=== PATIENT | male | born 1975 | race Caucasian/White ===

== ENCOUNTER → 2017-08-01 | Outpatient (CLI) | payer OTHER ==
[2017-08-01 12:24] LABS: WHITE BLOOD COUNT 6.53 K/uL (4.8-10.8)
[2017-08-01 12:25] LABS: HEMATOCRIT 45.2 % (42-52); HEMOGLOBIN 16.5 g/dL (14.0-18.0); MEAN CELL VOLUME 87.8 fL (80-100); MEAN CORPUSCULAR HGB CONC 36.5 g/dl (32-36); MEAN PLATELET VOLUME 10.5 fL (7.4-10.4); PLATELET COUNT 127 K/uL (130-400); RED CELL DISTRIBUTION WIDTH CV 11.8 % (11.5-14.5); RED CELL DISTRIBUTION WIDTH SD 37.9 fL (36.4-46.3)
[2017-08-01 12:58] LABS: HEMOGLOBIN A1C 14.2 % (4.5-5.6)
[2017-08-01 14:05] LABS: ALBUMIN 4.3 gm/dl (3.4-5.0); ALKALINE PHOSPHATASE 118 U/L (45-117); ALT/SGPT 61 U/L (12-78); AST/SGOT 21 U/L (15-37); BLOOD UREA NITROGEN 15 mg/dl (7-18); CALCIUM 9.2 mg/dl (8.5-10.1); CARBON DIOXIDE 27 mmol/L (21-32); CHOLESTEROL 290 mg/dl (0-200); GLUCOSE 418 mg/dl (70-99); POTASSIUM 4.4 mmol/L (3.5-5.1); SODIUM 134 mmol/L (136-145); TOTAL PROTEIN 7.5 gm/dl (6.4-8.2)
[2017-08-01 14:31] LABS: LDL CHOLESTEROL (DIRECT) 168 mg/dl
== END | disposition home or self-care (01) ==
LOC: C.LABPVFM 08:12
PROVIDERS: ATTEND Family Medicine
DX: Z00.00 Encounter for general adult medical examination without abnormal findings (principal)

== ENCOUNTER → 2017-10-18 | Outpatient (CLI) | payer OTHER ==
[2017-10-18 13:07] LABS: HEMATOCRIT 47.6 % (42-52); HEMOGLOBIN 16.5 g/dL (14.0-18.0); MEAN CORPUSCULAR HEMOGLOBIN 31.5 pg (25-34); MEAN CORPUSCULAR HGB CONC 34.7 g/dl (32-36); MEAN PLATELET VOLUME 10.1 fL (7.4-10.4); PLATELET COUNT 113 K/uL (130-400); RED CELL DISTRIBUTION WIDTH CV 12.7 % (11.5-14.5); RED CELL DISTRIBUTION WIDTH SD 42.7 fL (36.4-46.3); WHITE BLOOD COUNT 7.03 K/uL (4.8-10.8)
[2017-10-18 13:26] LABS: ALBUMIN 4.2 gm/dl (3.4-5.0); ALT/SGPT 63 U/L (12-78); AST/SGOT 30 U/L (15-37); BLOOD UREA NITROGEN 23 mg/dl (7-18); CALCIUM 8.9 mg/dl (8.5-10.1); CARBON DIOXIDE 26 mmol/L (21-32); CREATININE 1.09 mg/dl (0.60-1.40); GLUCOSE 127 mg/dl (70-99); POTASSIUM 4.2 mmol/L (3.5-5.1); SODIUM 141 mmol/L (136-145)
[2017-10-18 13:29] LABS: ALKALINE PHOSPHATASE 75 U/L (45-117); CHOLESTEROL 124 mg/dl (0-200); LDL CHOLESTEROL CALCULATED 57 mg/dl; TOTAL PROTEIN 7.3 gm/dl (6.4-8.2)
== END | disposition home or self-care (01) ==
LOC: C.LABPVFM 08:05
PROVIDERS: ATTEND Family Medicine
DX: Z30.09 Encounter for other general counseling and advice on contraception (principal); Z30.2 Encounter for sterilization; E78.00 Pure hypercholesterolemia, unspecified

== ENCOUNTER → 2018-01-25 | Outpatient (CLI) | payer OTHER ==
[2018-01-25 13:25] LABS: HEMOGLOBIN A1C 5.8 % (4.5-5.6)
[2018-01-25 14:43] LABS: ALBUMIN 4.4 gm/dl (3.4-5.0); ALKALINE PHOSPHATASE 83 U/L (45-117); ALT/SGPT 126 U/L (12-78); AST/SGOT 42 U/L (15-37); BLOOD UREA NITROGEN 16 mg/dl (7-18); CARBON DIOXIDE 24 mmol/L (21-32); CHOLESTEROL 110 mg/dl (0-200); CREATININE 1.14 mg/dl (0.60-1.40); GLUCOSE 127 mg/dl (70-99); LDL CHOLESTEROL CALCULATED 37 mg/dl; POTASSIUM 4.3 mmol/L (3.5-5.1); SODIUM 138 mmol/L (136-145); TOTAL PROTEIN 7.5 gm/dl (6.4-8.2)
== END | disposition home or self-care (01) ==
LOC: C.LABPVFM 07:31
PROVIDERS: ATTEND Family Medicine
DX: E11.9 Type 2 diabetes mellitus without complications (principal); Z00.00 Encounter for general adult medical examination without abnormal findings